=== PATIENT | female | born 1970 | race Caucasian/White ===

== ENCOUNTER 2022-05-30 09:02 | Day surgery (SDC) | payer BC ==
[~2022-05-30] VITALS: Ht 162.6 cm; Wt 81.3 kg
[~2022-05-30 09:02] MED LIST: CETI10 PO; MECL25 PO; PANT40
[2022-05-30] MEDS ORDERED: CYCL10 PO (09:54)
[2022-05-30] MEDS ORDERED: Acetaminophen650 M1 (09:54)
[2022-05-30] MEDS ORDERED: IBUP800 PO (09:55)
--- NOTE | 2022-05-30 12:17 | NUR ---
05/30/22 1217 Ana María Lagos 1216: IV ONDANSETRON GIVEN PER ORDERS FOR NAUSEA AND VOMITING
== END 2022-05-30 13:20 | disposition home or self-care (01) ==
LOC: ORSCSDS 09:02
PROVIDERS: Obstetrics & Gynecology
PROC: 0UDB8ZX Extraction of Endometrium, Via Natural or Artificial Opening Endoscopic, Diagnostic (ICD-10-PCS; principal; 2022-05-30 10:30)
DX: N92.0 Excessive and frequent menstruation with regular cycle (principal); N85.00 Endometrial hyperplasia, unspecified; D50.9 Iron deficiency anemia, unspecified; D25.9 Leiomyoma of uterus, unspecified; N81.10 Cystocele, unspecified; Z79.899 Other long term (current) drug therapy
CPT/HCPCS: 88305; A9270; J2250; J2405; J2704; J3010; J7120

== ENCOUNTER 2023-08-29 22:34 | Emergency (ER) | payer BC ==
[~2023-08-29] VITALS: Ht 157.5 cm; Wt 86.2 kg
[~2023-08-29 22:34] MED LIST changes: +Acetaminophen650 M1; +CYCL10 PO; +IBUP800 PO; +VANCOCIN HCL125 MG PO
[2023-08-29 22:43] VITALS: BP 134/82
[2023-08-29 23:38] LABS: BASOPHILS ABSOLUTE AUTO 0.06 K/mm3 (0.00-0.23); BASOPHILS PERCENT AUTO 1 % (0-2); EOSINOPHILS ABSOLUTE AUTO 0.28 K/mm3 (0.00-0.68); EOSINOPHILS PERCENT AUTO 2 % (0-6); Hematocrit 35.3 % (33.0-51.0); Hemoglobin 11.4 g/dL (11.5-16.0); IMMATURE GRAN ABSOLUTE AUTO 0.05 K/mm3 (0.00-0.10); IMMATURE GRAN PERCENT AUTO 0 % (0-1); LYMPHOCYTES ABSOLUTE AUTO 2.63 K/mm3 (0.84-5.20); LYMPHOCYTES PERCENT AUTO 20 % (21-46); MONOCYTES ABSOLUTE AUTO 0.65 K/mm3 (0.16-1.47); MONOCYTES PERCENT AUTO 5 % (4-13); Mean Corpuscular HGB 26.4 pg (26.0-34.0); Mean Corpuscular HGB Conc 32.3 g/dL (31.5-36.5); Mean Corpuscular Volume 82 fL (80-100); Mean Platelet Volume 10.6 fL (9.1-12.4); NEUTROPHILS ABSOLUTE AUTO 9.65 K/mm3 (1.96-9.15); NEUTROPHILS PERCENT AUTO 72 % (41-73); Platelet Count 294 K/mm3 (150-400); RDW Coefficient Variation 15.6 % (11.7-14.2); RDW Standard Deviation 46.7 fL (35.1-46.3); Red Blood Cell Count 4.32 M/mm3 (3.80-5.20); White Blood Cell Count 13.32 K/mm3 (4.00-11.30)
[2023-08-29 23:49] LABS: Potassium, Blood 3.6 mmol/L (3.5-5.5)
[2023-08-29 23:50] LABS: Albumin, Blood 3.6 g/dL (3.4-5.0); Bilirubin, Total 0.3 mg/dL (0.1-1.0); Calcium, Blood 9.1 mg/dL (8.5-10.1); Creatinine, Blood 0.74 mg/dL (0.40-1.00); Globulin, Blood 3.5 g/dL (2.2-4.0); Total Protein, Blood 7.1 g/dL (6.4-8.2)
== END 2023-08-30 01:57 | disposition home or self-care (01) ==
LOC: ER 22:34
PROVIDERS: Emergency Medicine
DX: K59.00 Constipation, unspecified (principal); Z88.0 Allergy status to penicillin; Z88.8 Allergy status to other drugs, medicaments and biological substances; Z88.5 Allergy status to narcotic agent; Z79.899 Other long term (current) drug therapy
CPT/HCPCS: 74176; 80053; 83605; 83690; 83735; 84145; 85025; 99284-25

== ENCOUNTER 2024-01-18 02:25 | Emergency (ER) | payer BC ==
[~2024-01-18] VITALS: Ht 160 cm; Wt 87.5 kg
[2024-01-18 03:09] LABS: BASOPHILS ABSOLUTE AUTO 0.07 K/mm3 (0.00-0.23); BASOPHILS PERCENT AUTO 1 % (0-2); EOSINOPHILS ABSOLUTE AUTO 0.28 K/mm3 (0.00-0.68); EOSINOPHILS PERCENT AUTO 3 % (0-6); Hematocrit 38.2 % (33.0-51.0); Hemoglobin 12.7 g/dL (11.5-16.0); IMMATURE GRAN ABSOLUTE AUTO 0.03 K/mm3 (0.00-0.10); IMMATURE GRAN PERCENT AUTO 0 % (0-1); LYMPHOCYTES ABSOLUTE AUTO 2.46 K/mm3 (0.84-5.20); LYMPHOCYTES PERCENT AUTO 24 % (21-46); MONOCYTES PERCENT AUTO 5 % (4-13); Mean Corpuscular HGB 27.9 pg (26.0-34.0); Mean Corpuscular HGB Conc 33.2 g/dL (31.5-36.5); Mean Corpuscular Volume 84 fL (80-100); Mean Platelet Volume 10.2 fL (9.1-12.4); NEUTROPHILS ABSOLUTE AUTO 6.73 K/mm3 (1.96-9.15); NEUTROPHILS PERCENT AUTO 67 % (41-73); Platelet Count 282 K/mm3 (150-400); RDW Coefficient Variation 13.9 % (11.7-14.2); RDW Standard Deviation 42.3 fL (35.1-46.3); Red Blood Cell Count 4.56 M/mm3 (3.80-5.20); White Blood Cell Count 10.07 K/mm3 (4.00-11.30)
[2024-01-18 03:29] LABS: Albumin, Blood 3.8 g/dL (3.4-5.0); Bilirubin, Total 0.3 mg/dL (0.1-1.0); Calcium, Blood 9.8 mg/dL (8.5-10.1); Creatinine, Blood 0.82 mg/dL (0.40-1.00); Globulin, Blood 3.8 g/dL (2.2-4.0); Potassium, Blood 4.2 mmol/L (3.5-5.5); Total Protein, Blood 7.6 g/dL (6.4-8.2)
[2024-01-18 03:36] LABS: Source, Urine Clean Catch
[2024-01-18 03:41] LABS: Bilirubin, Urine Neg (Neg); Blood, Urine 1+ (Neg); Glucose Qualitative, Urine Neg (Neg); Ketones, Urine Neg (Neg); Leukocyte Esterase, Urine 1+ (Neg); Nitrite, Urine Neg (Neg); Protein, Urine Neg (Neg); Urobilinogen, Urine NORM (Normal)
[2024-01-18 03:42] LABS: Appearance, Urine Clear (Clear); Color, Urine Yellow (P-Yellow)
[2024-01-18 04:03] LABS: Bacteria Mod /hpf; Red Blood Cells, Urine 0-2 /hpf (0-2); Squamous Epithelial Cells Rare /hpf (Few)
[2024-01-18 05:00] VITALS: BP 131/60
== END 2024-01-18 06:08 | disposition home or self-care (01) ==
LOC: ER 02:25
PROVIDERS: Student in an Organized Health Care Education/Training Program
DX: R07.2 Precordial pain (principal); Z79.899 Other long term (current) drug therapy; Z88.0 Allergy status to penicillin; Z88.5 Allergy status to narcotic agent; Z88.8 Allergy status to other drugs, medicaments and biological substances
CPT/HCPCS: 71046; 80053; 81001; 83690; 84484; 85025; 87086; 93005; 93010; 99285-25

== ENCOUNTER → 2024-02-28 | Outpatient (CLI) | payer BC | LOC: LAB 17:30 → LAB SHORT 17:30 | DX: R30.0 Dysuria (principal) | CPT/HCPCS: 87086 ==

== ENCOUNTER 2024-09-15 07:58 | Day surgery (SDC) | payer BC ==
[~2024-09-15] VITALS: Ht 160 cm; Wt 90.3 kg
[2024-09-15] VITALS (9 sets, daily range): BP systolic 105–159; BP diastolic 62–77
[~2024-09-15 07:58] MED LIST changes: +ATOR40TA PO; +Aspir 8181 MG PO; +FURO20 PO; +KLOR-CON 1010 ME9 PO; +METO25ER PO
[2024-09-15 08:46] LABS: BASOPHILS ABSOLUTE AUTO 0.06 K/mm3 (0.00-0.23); BASOPHILS PERCENT AUTO 1 % (0-2); EOSINOPHILS ABSOLUTE AUTO 0.31 K/mm3 (0.00-0.68); EOSINOPHILS PERCENT AUTO 4 % (0-6); Hemoglobin 13.1 g/dL (11.5-16.0); IMMATURE GRAN ABSOLUTE AUTO 0.02 K/mm3 (0.00-0.10); IMMATURE GRAN PERCENT AUTO 0 % (0-1); LYMPHOCYTES ABSOLUTE AUTO 1.79 K/mm3 (0.84-5.20); LYMPHOCYTES PERCENT AUTO 21 % (21-46); MONOCYTES ABSOLUTE AUTO 0.42 K/mm3 (0.16-1.47); MONOCYTES PERCENT AUTO 5 % (4-13); Mean Corpuscular HGB 28.9 pg (26.0-34.0); Mean Corpuscular HGB Conc 33.6 g/dL (31.5-36.5); Mean Corpuscular Volume 86 fL (80-100); Mean Platelet Volume 9.9 fL (9.1-12.4); NEUTROPHILS ABSOLUTE AUTO 5.84 K/mm3 (1.96-9.15); NEUTROPHILS PERCENT AUTO 69 % (41-73); Platelet Count 286 K/mm3 (150-400); RDW Coefficient Variation 13.5 % (11.7-14.2); RDW Standard Deviation 41.9 fL (35.1-46.3); Red Blood Cell Count 4.53 M/mm3 (3.80-5.20); White Blood Cell Count 8.44 K/mm3 (4.00-11.30)
[2024-09-15 09:00] LABS: International Normalized Ratio 1.01; Prothrombin Time Results 10.8 Sec (9.7-11.5)
[2024-09-15 09:07] LABS: Bun/Creatinine Ratio 19.8 (12.0-20.0); Calcium, Blood 9.4 mg/dL (8.5-10.1); Creatinine, Blood 0.81 mg/dL (0.40-1.00)
[2024-09-15] MEDS ORDERED: Aspirin 81 MG Chew ONE (09:56)
[2024-09-15] MEDS ORDERED: Ondansetron HCl 2 MG / ML 2ML Vial ONE ×2 (09:56→12:02)
[2024-09-15] MEDS ORDERED: NS 1,000 ML IV ONE ×2 (10:09→10:16)
[2024-09-15] MEDS ORDERED: Heparin Sodium 1000 Units/ML 10ML MDV ONE (10:09)
[2024-09-15] MEDS ORDERED: Verapamil HCL 2.5 MG/ML 2ML Injection ONE (10:09)
[2024-09-15] MEDS ORDERED: NS 250 ML IV ONE (10:10)
[2024-09-15] MEDS ORDERED: Nitroglycerin 2 MG/20 ML BTL ONE (10:10)
[2024-09-15] MEDS ORDERED: FentaNYL Citrate 50 MCG/ML 2 ML Injection ONE ×2 (10:16→11:02)
[2024-09-15] MEDS ORDERED: Midazolam HCl 1MG / ML 2ML Vial ONE ×2 (10:16→11:02)
--- NOTE | 2024-09-15 12:05 | NUR ---
PT BACK TO RECOVERY VIA RECLINER. PT REPORTS NAUSEA CONTINUES. PT VSS. NADN. PT R RADIAL TR BAND IN PLACE. NO BLEEDING OR HEMATOMA NOTED. PER DR MCLAUGHLIN,NEW ORDERS IN PLACE. VSS. FAMILY AT BEDSIDE.
--- NOTE | 2024-09-15 13:30 | NUR ---
PT CONTINUES TO BE NAUSEATED. VSS. PT TR BAND FULLY DEFLATED FROM R RADIAL. NO BLEEDING OR HEMATOMA NOTED. FAMILY AT BEDSIDE.
[2024-09-15] MEDS ORDERED: Acetaminophen 325 MG TABLET PO ONE (13:40)
[2024-09-15] MEDS ORDERED: Acetaminophen 325 MG TABLET ONE (13:40)
--- NOTE | 2024-09-15 13:45 | NUR ---
PT C/O MOREL. PER NEW ORDERS IN PLACE FOR TYLENOL. PT TOLERATES WELL. RADIAL SITE REMAINS C/D/I
--- NOTE | 2024-09-15 14:00 | NUR ---
PT AND S/O VERBALIZES UNDERSTANDING WRITTEN AND VERBAL INSTRUCTIONS. DENIES QUESTIONS OR CONERNS. VSS.
--- NOTE | 2024-09-15 14:15 | NUR ---
PT DRESSES SELF WITH MINIMAL ASSISTANCE. VSS. PT AMBULATES TO RESTROOM BACK WITHOUT DIFF. PT TR BAND REMOVED. CLOTH DOT WITH SPLINT IN PLACE. NO BLEEDING NOTED. PT DC TO HOME VIA WC BY S/O
== END 2024-09-15 14:15 | disposition home or self-care (01) ==
LOC: MHTC 07:58
PROVIDERS: Student in an Organized Health Care Education/Training Program
DX: I25.118 Atherosclerotic heart disease of native coronary artery with other forms of angina pectoris (principal); E66.9 Obesity, unspecified; E78.5 Hyperlipidemia, unspecified; Z88.0 Allergy status to penicillin; Z88.5 Allergy status to narcotic agent; Z79.82 Long term (current) use of aspirin; Z79.899 Other long term (current) drug therapy
CPT/HCPCS: 76937; 80048; 85025; 85610; 93458; 99152; 99153; A9270; C1769; C1887; C1894; J1644; J2250; J2405; J3010; J7030; J7050; Q9967

== ENCOUNTER 2025-01-30 20:07 | Emergency (ER) | payer BC ==
[~2025-01-30] VITALS: Ht 154.9 cm; Wt 88.0 kg
[2025-01-30 20:14] VITALS: BP 182/84
[2025-01-30 20:56] LABS: BASOPHILS ABSOLUTE AUTO 0.05 K/mm3 (0.00-0.23); BASOPHILS PERCENT AUTO 0 % (0-2); EOSINOPHILS ABSOLUTE AUTO 0.28 K/mm3 (0.00-0.68); EOSINOPHILS PERCENT AUTO 2 % (0-6); Hematocrit 38.8 % (33.0-51.0); Hemoglobin 13.1 g/dL (11.5-16.0); IMMATURE GRAN ABSOLUTE AUTO 0.04 K/mm3 (0.00-0.10); IMMATURE GRAN PERCENT AUTO 0 % (0-1); LYMPHOCYTES ABSOLUTE AUTO 2.30 K/mm3 (0.84-5.20); LYMPHOCYTES PERCENT AUTO 19 % (21-46); MONOCYTES ABSOLUTE AUTO 0.66 K/mm3 (0.16-1.47); MONOCYTES PERCENT AUTO 6 % (4-13); Mean Corpuscular HGB Conc 33.8 g/dL (31.5-36.5); Mean Corpuscular Volume 85 fL (80-100); NEUTROPHILS ABSOLUTE AUTO 8.78 K/mm3 (1.96-9.15); NEUTROPHILS PERCENT AUTO 73 % (41-73); NRBC ABSOLUTE 0.00 K/mm3 (0.00-0.02); NRBC Auto 0.0 /100 WBC (0.0-0.2); Platelet Count 267 K/mm3 (150-400); RDW Coefficient Variation 13.2 % (11.7-14.2); RDW Standard Deviation 40.5 fL (35.1-46.3)
[2025-01-30 21:18] LABS: Alanine Aminotransfer (ALT/SGP 63.0 U/L (12-78); Albumin, Blood 3.9 g/dL (3.4-5.0); Albumin/Globulin Ratio 1.1 (0.8-1.8); Anion Gap 5.0 mmol/L (3-11); Aspartate Aminotrans (AST/SGOT 23.0 U/L (12-37); Bilirubin, Total 0.2 mg/dL (0.1-1.0); Blood Urea Nitrogen 11.0 mg/dL (8-24); CO2, Blood 27.0 mmol/L (21-32); Calcium, Blood 9.1 mg/dL (8.5-10.1); Chloride, Blood 110.0 mmol/L (98-108); Creatinine, Blood 0.76 mg/dL (0.40-1.00); Globulin, Blood 3.6 g/dL (2.2-4.0); Glucose, Blood 120.0 mg/dL (70-99); Magnesium, Blood 2.1 mg/dL (1.6-2.4); Potassium, Blood 3.7 mmol/L (3.5-5.5); Sodium, Blood 138.0 mmol/L (136-145); Total Protein, Blood 7.5 g/dL (6.4-8.2)
[2025-01-30] MEDS ORDERED: IBU600 MG PO (23:15)
[2025-01-30] MEDS ORDERED: CYCL10 PO (23:15)
== END 2025-01-30 23:32 | disposition home or self-care (01) ==
LOC: ER 20:07
PROVIDERS: Emergency Medicine
DX: M79.622 Pain in left upper arm (principal); Z88.0 Allergy status to penicillin; Z88.6 Allergy status to analgesic agent; Z88.5 Allergy status to narcotic agent; Z88.8 Allergy status to other drugs, medicaments and biological substances; Z79.82 Long term (current) use of aspirin; Z79.899 Other long term (current) drug therapy
CPT/HCPCS: 73206; 80053; 82550; 83735; 84484; 85025; 93005; 93010; 99284-25; Q9967